=== PATIENT | male | born 1975 | race Caucasian/White ===

== ENCOUNTER 2023-07-23 08:21 | Day surgery (SDC) | payer BC, SELFPAY ==
[2023-07-23] VITALS (9 sets, daily range): BP systolic 103–129; BP diastolic 68–89; BMI 40.6
[2023-07-23 09:06] LABS: Glucose - Point of Care 120 mg/dl (70-99)
[2023-07-23 09:15] LABS: INR 1.54; PT 18.6 Sec (11.4-14.6)
--- NOTE | 2023-07-23 12:40 | ITS.CL.PACE ---
Addendum entered and electronically signed by Viviana Middleton MD 07/25/23 07:29:
Other procedures:
1: LINQ loop recorder explant: Lidocaine with epi was used to anesthetize over the implant scar. A 1cm incision was made over the prior scar. The LINQ was removed. Skin was close with absorbable 3-0 suture followed by absorbable 5-0 subcuticular
suture. The site was covered with Steri-strips.
Original Note:
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
Pacemaker Implant
Procedure Report:
PACEMAKER IMPLANT REPORT
Primary Care Provider: Dr. Marni Kang
Primary [employer]: Dr. Mal Watson
Date of Procedure: July 23, 2023
Procedure:
1: Implantation of dual-chamber permanent pacemaker utilizing the left bundle branch for conduction system pacing
Indication/Diagnosis:
1: Non-reversible symptomatic bradycardia due to intermittent third degree atrioventricular block
HISTORY: The patient is a 48-year-old man with a past medical history significant for mechanical mitral valve replacement and persistent atrial fibrillation status post PVI x 2 who presents with intermittent third-degree AV block and syncope. He is
referred for dual-chamber pacemaker placement. Coumadin was held after INR was 3.5 on Friday. INR today is 1.5.
Antibiotic: Ancef 3 g IV
Sedation: Conscious sedation per anesthesia staff
After informed consent was obtained, 'time out' was called and confirmed, the patient was prepped and draped in a sterile fashion. Lidocaine with epi was used for local anesthesia. Central venous access was obtained via subclavian venipuncture. An
incision was made along the left chest and a pre-pectoral pocket was formed. Using a Seldinger technique and peel-away sheaths, the pacing leads were placed under fluoroscopic guidance.
Fluoroscopy was used to determine likely anatomic site for left bundle branch pacing. The Talicious C315 sheath was used to deliver the Medtronic 3830 Selectsecure pacing lead with the helix exposed just exposed from the sheath tip during continuous
monitoring when pacemapping the septum during gentle clockwise rotation to obtain a paced QRS morphology of a W pattern in lead V1. Once the suspected optimal site was identified, lead deployment was performed with several rapid rotations as paced
QRS morphology was intermittently monitored until a paced QRS complex in lead V1 demonstrated development of an R wave (qR or rSR).
Stable VEgm injury current is present throughout lead position and at end of case.
Final unipolar pacing impedance is 1102 ohms
Unipolar pacing threshold is stable at 0.5 V @0.4ms.
[The patient had pre-existing narrow QRS.
Final conduction system paced QRS complex duration is 133 ms
LVAT is 88 ms and peak V5 -> peak V1 timing is 51 ms
Right atrial lead was placed at the RAA.
Once testing (see below) showed adequate and stable function, the leads were secured using the suture sleeves. The pocket was liberally irrigated with antibiotic solution. The leads were connected to the generator header and the leads and
generator were placed within the pocket. Fluoroscopy confirmed stable lead position. The pocket was closed in the typical fashion.
Fluoroscopy Time (min): 16.3
Radiation Dose (mGy): 159
DAP (Gy.cm2): 21
IMPLANTS:
Medtronic [id number], SN: [id number], Left Pectoral
RA: Medtronic 5076-45, SN: [id number], RAA
RV: Medtronic 3830 , SN:[id number], Interventricular septum at LBB
DEVICE TESTING:
Sensing: RA 2.5 mV, RV 9.8 mV
Capture: RA 0.75 V@0.4ms, RV 0.5 V@0.4ms
Ohms: RA 627, RV 1102
FINAL PROGRAMMING
Scottie Pacing: AAIR+DDDR 50-130 ppm
COMPLICATIONS: None.
CONCLUSIONS:
1: Successful implant of dual chamber permanent pacemaker utilizing Left Bundle Branch conduction system capture for pacing.
RECOMMENDATIONS:
1. Post-op care (tele, CXR, IV abx)
2. In-Office wound check in 5-7 days
3. Will give Coumadin 15 mg p.o. now given unexpectedly low INR of 1.54 today. Will repeat INR tomorrow and consider Lovenox bridging. This will need to be balanced with the risk of pocket hematoma.
Copy to: Dr. Marni Kang
--- NOTE | 2023-07-23 13:33 | PTCARENOTE ---
Received patient post op after pacer implant left upper chest and removal of linq recorder left upper chest. 4x4 with tegaderm dry and intact at pacer site, 2x2 with scant amount of serosanguineous drainage is intact. Sling in place LUE, post op EKG
was done. Patient oriented to room and plan of care, post op restrictions reinforced. Patient offers no complaints, call nash within reach.
[2023-07-23] MEDS: COUMADIN 15 MG PO (14:15)
[2023-07-23] MEDS: TYLENOL 650 MG PO (14:17)
--- NOTE | 2023-07-23 16:19 | CM ---
Chart reviewed. Patient is independent of ADLS, lives with his in a 2 [address], 2 [facility], 0 DME. Patient currently with no discharge needs. CM to follow
--- NOTE | 2023-07-23 16:54 | PTCARENOTE ---
Patient is sitting oob in the chair, dressing dry and intact at pacer site, sling in place LUE. CXR done in the department, given tylenol po earlier with relief.
[2023-07-23] MEDS: ANCEF 5 IV (17:00)
[2023-07-23] MEDS: ZOLOFT 200 MG PO (17:00)
[2023-07-23] MEDS: PROTONIX 40 MG PO (17:01)
[2023-07-23] MEDS: FLUSH (NSS) 2 FLUSH IV (17:01)
[2023-07-23] MEDS: LIPITOR 20 MG PO (17:01)
[2023-07-23] MEDS: ZESTRIL 10 MG PO (17:03)
[2023-07-23] MEDS: TOPROL XL 25 MG PO (17:04)
[2023-07-23] MEDS: TIKOSYN 500 MCG PO (19:43)
--- NOTE | 2023-07-24 01:03 | PTCARENOTE ---
Pt. NSR on the monitor with very occasional V-pacing (while asleep). No complaints CP/discomfort, left chest incision dressing intact with no S&S hematoma, dime sized area old SS drainage present at change of shift that has not grown since, sling
on. Pt. OOB and ambulatory when awake, very pleasant. Currently sleeping.
[2023-07-24] MEDS: ANCEF 5 IV (01:26)
[2023-07-24 03:11] VITALS: BP 113/70
[2023-07-24 03:47] LABS: Hematocrit 35.6 % (39.0-52.0); Hemoglobin 12.1 g/dL (13.0-18.0); Mean Corpuscular Hgb 26.9 pg (27.0-31.0); Mean Corpuscular Volume 79.3 fL (80.0-94.0); Mean Platelet Volume 10.1 fL (7.4-10.4); Platelet Count 214 10^3/uL (130-400); Red Blood Cell Count 4.49 10^6/uL (4.70-6.10); Red Cell Dist. Width 13.4 % (11.5-14.5); White Blood Cell Count 9.8 10^3/uL (4.8-10.8)
[2023-07-24 04:01] LABS: PT 18.2 Sec (11.4-14.6)
--- NOTE | 2023-07-24 04:10 | PTCARENOTE ---
Pt.'s left chest dressing with a slightly more SS drainage. No S&S hematoma, left radial pulse strong, sensation & movement intact. Mauricio EDOUARD at bedside to assess, no new orders.
[2023-07-24 04:26] LABS: Blood Urea Nitrogen 18 mg/dl (9-20); Calcium 9.3 mg/dl (8.4-10.2); Carbon Dioxide 25 mmol/L (22-30); Chloride 102 mmol/L (98-107); Estimated Creatinine Clearance > 125 ml/min; Glucose 163 mg/dl (70-99); Potassium 4.2 mmol/L (3.5-5.1); Sodium 134 mmol/L (135-145); eGFR > 60.00
--- NOTE | 2023-07-24 06:33 | PTCARENOTE ---
[facility] interrogation/transmission completed.
[2023-07-24 07:16] VITALS: BP 126/86
[2023-07-24] MEDS: COUMADIN 15 MG PO (08:00)
[2023-07-24] MEDS: TIKOSYN 500 MCG PO (08:00)
--- NOTE | 2023-07-24 08:26 | W.PN.CARDCBS ---
Addendum entered and electronically signed by SAIMA Grigsby 07/24/23 14:21:
Repeat INR 1.68 at 1pm, s/w Dr. Middleton and his Coumadin RN via phone. We will hold off on Lovenox bridge for now, he will have inc check and INR in office tomorrow and then decide on bridging. No further Coumadin tonight. He is stable for d/c home
today.
Addendum entered and electronically signed by Errol Cornelius MD 07/24/23 10:10:
Patient seen and examined
Agree with [employer]NC[employer] note and assessment
Agree with [employer] plan
History notable for recurrent atrial fibrillation after surgical maze and catheter procedures with intermittent third-degree AV block and symptoms
Remainder of history per Dr. Middleton's implantation report
Examination:
Site clean dry and intact
Cor regular with crisp S2
Telemetry with sinus rhythm and intermittent atrial pacing
Telemetry demonstrates appropriate atrial and ventricular sensing
Chest x-ray demonstrates stable atrial and right ventricular septal lead positions
Remainder of examination per [employer]NC[employer] note
48-year-old man with a past medical history significant for mechanical mitral valve replacement and persistent atrial fibrillation status post PVI x 2 who presents with intermittent third-degree AV block and syncope.� He is referred for dual-chamber
pacemaker placement.� Coumadin was held after INR was 3.5 on Friday.� INR today is 1.5.
Impression:
Symptomatic bradycardia, intermittent high grade AV block
Syncope
post DC PPM LBBB 07/23/23
Loop recorder explant 07/23/23
h/o MVR mechanical ([facility])/MAZE 2013 on chronic Warfarin
Persistent Afib priori PVI 2013 and 01/2024
HTN
DM2
KATLIN/CPAP
Depression
Plan:
post device and loop explant sites stable
tele SR 1deg AVB intermittent pacing
CXR no PTX, leads in position
INR today 1.5 goal 2.5-3.5, got 15mg last night
will give another 15mg now, recheck INR at 1pm
continue metoprolol, dofetilide
Activity restrictions reviewed
inc check in office Friday with Dr. Middleton
If INR not rising will discuss with Dr. Middleton plan for Lovenox bridging until therapeutic
Risk/benefits were discussed with patient with possibility of pocket HT with Lovenox
He has home INR check at home and Lovenox injections, possibly home later today
Original Note:
Today's Communication / Plan
-
Subtheraputic INR this am, will give another 15mg coumadin now
Recheck INR at 1pm, pt may need lovenox bridge at d/c
Will discuss with Dr. Middleton and Dr. Cornelius after INR repeated for dispo plan
Impression / Plan
-
Primary Care Provider: Dr. Marni Kang
Primary Pin Drafter: Dr. Mal Watson
48-year-old man with a past medical history significant for mechanical mitral valve replacement and persistent atrial fibrillation status post PVI x 2 who presents with intermittent third-degree AV block and syncope.� He is referred for dual-chamber
pacemaker placement.� Coumadin was held after INR was 3.5 on Friday.� INR today is 1.5.
Impression:
Symptomatic bradycardia, intermittent high grade AV block
Syncope
post DC PPM LBBB 07/23/23
Loop recorder explant 07/23/23
h/o MVR mechanical ([facility])/MAZE 2013 on chronic Warfarin
Persistent Afib priori PVI 2013 and 01/2024
HTN
DM2
KATLIN/CPAP
Depression
Plan:
post device and loop explant sites stable
tele SR 1deg AVB intermittent pacing
CXR no PTX, leads in position
INR today 1.5 goal 2.5-3.5, got 15mg last night
will give another 15mg now, recheck INR at 1pm
continue metoprolol, dofetilide
Activity restrictions reviewed
inc check in office Friday with Dr. Middleton
If INR not rising will discuss with Dr. Middleton plan for Lovenox bridging until therapeutic
Risk/benefits were discussed with patient with possibility of pocket HT with Lovenox
He has home INR check at home and Lovenox injections, possibly home later today
Progress Note - Pin Drafter
Subjective
Date of Service: July 24, 2023
no cp, sob
Objective
Labs:
07/24/23 03:31
07/24/23 03:31
Labs
Hgb 12.1 g/dL (13.0-18.0) L 07/24/23 03:31
Hct 35.6 % (39.0-52.0) L 07/24/23 03:31
Plt Count 214 10^3/uL (130-400) 07/24/23 03:31
PT 18.2 Sec (11.4-14.6) H 07/24/23 03:31
INR 1.50 07/24/23 03:31
Sodium 134 mmol/L (135-145) L 07/24/23 03:31
Potassium 4.2 mmol/L (3.5-5.1) 07/24/23 03:31
BUN 18 mg/dl (9-20) 07/24/23 03:31
Creatinine 0.7 mg/dL (0.7-1.3) 07/24/23 03:31
Glucose 163 mg/dl (70-99) H 07/24/23 03:31
Vital Signs and I&O:
Vital Signs
Temp Pulse Resp BP Pulse Ox
97.5 F 80 20 126/86 96
07/24/23 07:12 07/24/23 07:16 07/24/23 07:12 07/24/23 07:16 07/24/23 07:12
Vital Signs
Temp Pulse Resp BP Pulse Ox
97.5 F 80 20 126/86 96
07/24/23 07:12 07/24/23 07:16 07/24/23 07:12 07/24/23 07:16 07/24/23 07:12
Intake & Output
07/22/23 07/23/23 07/24/23 07/25/23
06:59 06:59 06:59 06:59
Intake Total 1080 / 1080
Balance 1080 / 1080
Physical Exam
Physical Exam
NAD, AOX3
S1, S2, RRR
CTAB, non labored
SNTND Bsx4
L CW site dressing removed, steri strips in place, no HT
Loop site dressing removed, steri strips in place, no drainage
--- NOTE | 2023-07-24 11:14 | CM ---
Chart reviewed. Patient is independent of ADLS, lives with his in a 2 [address], 2 [facility], 0 DME. Patient's INR 1.5, goal 2.5-3.5. Patient waiting for repeat INR check at 1pm. Patient does have Lovenox at home. CM to follow INR and Lovenox dosage
for DC. Plan is for the patient to return home. CM to follow
[2023-07-24 11:40] VITALS: BP 123/71
[2023-07-24 13:58] LABS: INR 1.68; PT 19.9 Sec (11.4-14.6)
--- NOTE | 2023-07-24 14:30 | PTCARENOTE ---
Patient ready for discharge. Removed IV. Went over discharge instructions. Ambulated out of building, taken home by parents.
--- NOTE | 2023-07-24 14:41 | W.DS.TRANS ---
DC Summary - Process Manufacturing Engineer
-
Discharge Instructions:
Discharge Diagnosis/Procedures Permanent pacemaker implant with linq removal
Diet Low Cholesterol
Driving Restrictions No driving for 1 week
Blood Work Check INR on Friday
Instructions:
Stand-Alone Forms: DC Inst - Implanted Device
Changes to Home Medications: No
Discharge Medications:
DC Medications w/original date entered in [employer]
omeprazole 20 mg capsule,delayed release 20 mg PO QPM 10/12/13
atorvastatin 20 mg tablet 20 mg PO QPM 10/12/20
sertraline 100 mg tablet 200 mg PO QPM 10/12/20
lisinopril 10 mg tablet 10 mg PO QPM 01/21/23
dofetilide 500 mcg capsule 500 mcg PO BID 07/23/23
metoprolol succinate 25 mg tablet,extended release 24 hr 25 mg PO QPM 07/23/23
warfarin 10 mg tablet 10 mg PO SUTUTH 07/23/23
warfarin 5 mg tablet 5 mg PO MOWEFRSA 07/23/23
Home Medication Changes
Pending Results: No
== END 2023-07-24 15:30 | disposition home or self-care (01) ==
LOC: CATH 08:21
PROVIDERS: Nurse Practitioner; Nurse Practitioner Adult Health; ATTENDING PHYSICIAN Internal Medicine Interventional Cardiology; FAMILY PHYSICIAN Internal Medicine; OTHER PHYSICIAN Internal Medicine Cardiovascular Disease
DX: I44.2 Atrioventricular block, complete (principal); R55 Syncope and collapse; I44.7 Left bundle-branch block, unspecified; Z95.2 Presence of prosthetic heart valve; Z79.01 Long term (current) use of anticoagulants; I48.19 Other persistent atrial fibrillation; I11.9 Hypertensive heart disease without heart failure; E11.9 Type 2 diabetes mellitus without complications; G47.33 Obstructive sleep apnea (adult) (pediatric); F32.A Depression, unspecified; Z09 Encounter for follow-up examination after completed treatment for conditions other than malignant neoplasm
CPT/HCPCS: 33285; 33208; 33286; 71045; 80048; 82962; 85027; 85610; 93005; C1769; C1785; C1887; C1892; C1898; Q9967